=== PATIENT | female | born 1965 | race Caucasian/White ===

== ENCOUNTER 2019-10-28 13:10 | Emergency (ER) | payer BC ==
--- NOTE | 2019-10-28 14:43 | ER Document Report ---
ED Medical Screen (RME) - General Chief Complaint: Abdominal Pain Stated Complaint: RIB PAIN Time Seen by Provider: 10/28/19 14:36 Mode of Arrival: Ambulatory Information source: Patient Notes: 54-year-old female presents emergency department with complaints of abdominal pain for the past 5 years vomiting, increasing pain over the past 3 years. With chills. Recently seen for provider and given multiple medications. Reports pain in the right upper quad.. Reports she has never been evaluated for this pain because she did not have insurance. Patient reports she just recently started small smoking marijuana in the past year so she could eat. Denies fever and diarrhea. I have greeted and performed a rapid initial assessment of this patient. A comprehensive ED assessment and evaluation of the patient, analysis of test results and completion of the medical decision making process will be conducted by additional ED providers. - Related Data Allergies/Adverse Reactions: diphenhydramine [From [employer] (diphenhydramine)] Allergy (Verified 10/28/19 14:34) Past Medical History - Social History Chew tobacco use (# tins/day): No Frequency of alcohol use: None Drug Abuse: Marijuana Physical Exam - Vital signs Vitals: Temp Pulse Resp BP Pulse Ox 100 F 89 18 133/88 H 100 10/28/19 14:06 10/28/19 14:06 10/28/19 14:06 10/28/19 14:06 10/28/19 14:06 Course - Vital Signs Vital signs: Temp Pulse Resp BP Pulse Ox 100 F 89 18 133/88 H 100 10/28/19 14:06 10/28/19 14:06 10/28/19 14:06 10/28/19 14:06 10/28/19 14:06
[2019-10-28 15:40] LABS: ABSOLUTE LYMPHOCYTES (AUTO) 1.1 10^3/uL (0.5-4.7); ABSOLUTE MONOCYTES (AUTO) 0.4 10^3/uL (0.1-1.4); ABSOLUTE NEUT (AUTO) 7.2 10^3/uL (1.7-8.2); BASOPHILS % (AUTO) 0.5 % (0-2); EOSINOPHILS % (AUTO) 0.1 % (0-6); HEMATOCRIT 47.2 % (36.0-47.0); HEMOGLOBIN 16.2 g/dL (12.0-15.5); LYMPHOCYTES % (AUTO) 12.3 % (13-45); MEAN CORPUSCULAR HEMOGLOBIN 31.1 pg (27.0-33.4); MEAN CORPUSCULAR HGB CONC 34.4 g/dL (32.0-36.0); MEAN CORPUSCULAR VOLUME 90 fl (80-97); MONOCYTES % (AUTO) 4.7 % (3-13); PLATELET COUNT 184 10^3/uL (150-450); RED BLOOD COUNT 5.22 10^6/uL (3.72-5.28); RED CELL DISTRIBUTION WIDTH 12.8 % (11.5-14.0); SEGMENTED NEUTROPHILS % (AUTO) 82.4 % (42-78); TOTAL CELLS COUNTED % (AUTO) 100 %; WHITE BLOOD COUNT 8.8 10^3/uL (4.0-10.5)
[2019-10-28 15:49] LABS: APPEARANCE,URINE SLIGHTLY-CLOUDY; BILIRUBIN,URINE NEGATIVE (NEGATIVE); COLOR,URINE YELLOW; GLUCOSE, URINE NEGATIVE (NEGATIVE); KETONES,URINE TRACE mg/dL (NEGATIVE); LEUKOCYTE ESTERASE,URINE NEGATIVE (NEGATIVE); NITRITE,URINE NEGATIVE (NEGATIVE); PROTEIN,URINE 100 mg/dL (NEGATIVE); URINE SPECIFIC GRAVITY 1.024; UROBILINOGEN,URINE NEGATIVE mg/dL (<2.0)
[2019-10-28 15:54] LABS: ALBUMIN 4.4 g/dL (3.5-5.0); ALKALINE PHOSPHATASE 70 U/L (38-126); ANION GAP 10 (5-19); ASPARTATE AMINO TRANSFERASE 19 U/L (14-36); BILIRUBIN,DIRECT 0.1 mg/dL (0.0-0.4); BILIRUBIN,TOTAL 0.4 mg/dL (0.2-1.3); BLOOD UREA NITROGEN 10 mg/dL (7-20); CALCIUM 9.4 mg/dL (8.4-10.2); CARBON DIOXIDE 27 mmol/L (22-30); CHLORIDE 99 mmol/L (98-107); GLUCOSE 97 mg/dL (75-110); POTASSIUM 4.4 mmol/L (3.6-5.0); TOTAL PROTEIN 7.2 g/dL (6.3-8.2)
--- NOTE | 2019-10-28 16:15 | ER Document Report ---
ED General - General Chief Complaint: Abdominal Pain Stated Complaint: RIB PAIN Time Seen by Provider: 10/28/19 14:36 Primary Care Provider: JOSEFINA RUTHERFORD MD [Primary Care Provider] - Follow up as needed Mode of Arrival: Ambulatory Information source: Patient Notes: 54-year-old female presents emergency department with complaints of abdominal pain for the past 5 years vomiting, increasing pain over the past 3 years. With chills. Recently seen for provider and given multiple medications. She also reports he told her to eat as much junk food as she wanted to stay away from salads. She reports she has lost 25 pounds in the past year and a half. She reports she is just never hungry. She also reports pain in the right upper quad.. Reports she has never been evaluated for this pain because she did not have insurance. Patient reports she just recently started small smoking marijuana in the past year so she could eat. Denies fever and diarrhea. - HPI Onset: Other Onset/Duration: Persistent Quality of pain: Achy Associated symptoms: None Exacerbated by: Denies Relieved by: Denies Similar symptoms previously: Yes Recently seen / treated by doctor: Yes - Related Data Allergies/Adverse Reactions: diphenhydramine [From [employer] (diphenhydramine)] Allergy (Verified 10/28/19 14:34) Past Medical History - General Information source: Patient - Social History Smoking Status: Never Smoker Chew tobacco use (# tins/day): No Frequency of alcohol use: None Drug Abuse: Marijuana Family History: None Patient has suicidal ideation: No Patient has homicidal ideation: No - Medical History Medical History: Negative Surgical Hx: Negative Review of Systems - Review of Systems Notes: Review HPI for review of systems., All other systems negative Physical Exam - Vital signs Vitals: Temp Pulse BP Pulse Ox 100.0 F 93 133/88 H 100 10/28/19 14:05 10/28/19 14:05 10/28/19 14:05 10/28/19 14:05 - Notes Notes: PHYSICAL EXAMINATION: GENERAL: Well-appearing and in no acute distress HEAD: Atraumatic, normocephalic. EYES: extraocular movements intact, sclera anicteric, conjunctiva are normal. ENT: nares patent, . Moist mucous membranes. NECK: Normal range of motion, supple LUNGS: Respiratory rate even unlabored HEART: Regular rate ABDOMEN: Soft,ruq abd tenderness. No guarding, no rebound EXTREMITIES: Normal range of motion, NEUROLOGICAL: Cranial nerves grossly intact. PSYCH: Normal mood, normal affect. SKIN: Warm, Dry, normal turgor, no rashes or lesions noted Course - Re-evaluation Re-evalutation: 10/28/19 18:04 Minimal sludge, no evidence of cholecystitis. Labs unremarkable. Patient instructed on all results. Instructed on low-fat diet. Also instructed on the importance of follow back up with her primary care for referral to surgeon or HIDA scan. She verbalized understanding to all instructions. Abdomen Ultrasound 10/28/19 14:40 IMPRESSION: Minimal biliary sludge. No evidence of acute cholecystitis. Laboratory 10/28/19 10/28/19 10/28/19 15:22 15:22 15:22 WBC 8.8 RBC 5.22 Hgb 16.2 H Hct 47.2 H MCV 90 MCH 31.1 MCHC 34.4 RDW 12.8 Plt Count 184 Lymph % (Auto) 12.3 L Reynolds % (Auto) 4.7 Eos % (Auto) 0.1 Baso % (Auto) 0.5 Absolute Neuts (auto) 7.2 Absolute Lymphs (auto) 1.1 Absolute Monos (auto) 0.4 Absolute Eos (auto) 0.0 Absolute Basos (auto) 0.0 Seg Neutrophils % 82.4 H Sodium 136.3 L Potassium 4.4 Chloride 99 Carbon Dioxide 27 Anion Gap 10 BUN 10 Creatinine 0.98 Est GFR ( Amer) > 60 Est GFR (MDRD) Non-Af 59 L Glucose 97 Calcium 9.4 Total Bilirubin 0.4 Direct Bilirubin 0.1 Neonat Total Bilirubin Not Reportable Neonat Direct Bilirubin Not Reportable Neonat Indirect Bili Not Reportable AST 19 ALT 16 Alkaline Phosphatase 70 Total Protein 7.2 Albumin 4.4 Lipase 54.9 Urine Color YELLOW Urine Appearance SLIGHTLY-CLOUDY Urine pH 5.0 Ur Specific [place] 1.024 Urine Protein 100 H Urine Glucose (UA) NEGATIVE Urine Ketones TRACE H Urine Blood SMALL H Urine Nitrite NEGATIVE Urine Bilirubin NEGATIVE Urine Urobilinogen NEGATIVE Ur Leukocyte Esterase NEGATIVE Urine WBC (Auto) 8 Urine RBC (Auto) 3 U Hyaline Cast (Auto) 1 Urine Bacteria (Auto) TRACE Squamous Epi Cells Auto 7 Urine Mucus (Auto) MOD Urine Ascorbic Acid NEGATIVE 10/28/19 18:45 - Vital Signs Vital signs: Temp Pulse Resp BP Pulse Ox 100.3 F 93 20 122/73 97 10/28/19 18:31 10/28/19 18:31 10/28/19 18:31 10/28/19 18:31 10/28/19 18:31 - Laboratory Result Diagrams: 10/28/19 15:22 10/28/19 15:22 Laboratory results interpreted by me: 10/28/19 10/28/19 10/28/19 15:22 15:22 15:22 Hgb 16.2 H Hct 47.2 H Lymph % (Auto) 12.3 L Seg Neutrophils % 82.4 H Sodium 136.3 L Est GFR (MDRD) Non-Af 59 L Urine Protein 100 H Urine Ketones TRACE H Urine Blood SMALL H - Diagnostic Test Radiology reviewed: Reports reviewed Discharge - Discharge Clinical Impression: Gallbladder disease Abdominal pain Qualifiers: Abdominal location: right upper quadrant Qualified Code(s): R10.11 - Right upper quadrant pain Condition: Stable Disposition: HOME, SELF-CARE Instructions: Abdominal Pain ([facility]), Gallbladder Disease ([facility]), Low-Fat Diet ([facility]) Additional Instructions: *You have been evaluated for abdominal pain *Your ultrasound did show some biliary sludge *Monitor your diet eat low-fat *Follow up with a primary care provider within 1 week for referral to surgeon as indicated *Return to ED for worsening condition, changes, needs *Return to ED if not better in 24 hours Referrals: JOSEFINA RUTHERFORD MD [Primary Care Provider] - Follow up as needed
--- NOTE | 2019-10-28 17:27 | RADIOLOGY REPORT (SQ) ---
EXAM DESCRIPTION: U/S ABDOMEN LIMITED W/O DOP COMPLETED DATE/TIME: 10/28/2019 4:47 pm REASON FOR STUDY: RUQ pain COMPARISON: None. TECHNIQUE: Dynamic and static grayscale images acquired of the abdomen and recorded on PACS. Additio nal selected color Doppler and spectral images recorded. LIMITATIONS: None. FINDINGS: PANCREAS: No masses. Visualized pancreatic duct normal caliber. LIVER: No masses. Echotexture normal. LIVER VASCULATURE: Normal directional flow of the main portal vein and hepatic veins. GALLBLADDER: No stones. Minimal internal low level echoes. Normal wall thickness. No pericholecysti c fluid. ULTRASOUND-DETECTED MATHIS'S SIGN: Negative. INTRAHEPATIC DUCTS AND COMMON DUCT: CBD and intrahepatic ducts normal caliber. No filling defects. INFERIOR VENA CAVA: Normal flow. AORTA: No aneurysm. RIGHT KIDNEY: Normal size. Normal echogenicity. No solid or suspicious masses. No hydronephrosis. No calcifications. PERITONEAL AND RIGHT PLEURAL SPACE: No ascites or effusions. OTHER: No other significant findings. IMPRESSION: Minimal biliary sludge. No evidence of acute cholecystitis. TECHNICAL DOCUMENTATION: JOB ID: [id number]- All Rights Reserved Reading location - IP/workstation name: [email or web address]
[2019-10-28 18:18] VITALS: BP 122/73
== END 2019-10-28 18:31 | disposition home or self-care (01) ==
LOC: ER 13:10
DX: K82.8 Other specified diseases of gallbladder (principal); R10.11 Right upper quadrant pain; R11.10 Vomiting, unspecified; R63.4 Abnormal weight loss; F12.10 Cannabis abuse, uncomplicated; Z88.8 Allergy status to other drugs, medicaments and biological substances
CPT/HCPCS: 36415; 76705; 80053; 81001; 83690; 85025; 99284